=== PATIENT | female | born 1995 | race Caucasian/White ===

== ENCOUNTER 2018-11-22 17:34 | Observation (INO) | payer OTHER ==
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
[2018-11-22] MEDS ORDERED: ACETAMINOPHEN 325 MG TABLET (FP) PO ONE (20:05)
[2018-11-22] MEDS ORDERED: ACETAMINOPHEN 325 MG TABLET (FP) ONE (20:07)
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
[2018-11-22 23:27] LABS: BASO % 0.3 % (0-2.0); EOS % 0.3 % (0-4.5); HEMATOCRIT 32.8 % (32.4-45.2); HEMOGLOBIN 11.2 GM/dL (10.7-15.3); LYMPH % 15.9 % (8-40); MCH 31.7 pg (25.7-33.7); MEAN CELL VOLUME 93.4 fl (80-96); MONO % 6.6 % (3.8-10.2); NEUT % 76.9 % (42.8-82.8); PLATELET COUNT 286 K/MM3 (134-434); RBC 3.51 M/mm3 (3.60-5.2); RDW 12.2 % (11.6-15.6); WHITE BLOOD COUNT 8.5 K/mm3 (4.0-10.0)
[2018-11-22] MEDS ORDERED: ACETAMINOPHEN 325 MG TABLET (FP) PO PRN (23:46)
[2018-11-22 23:47] LABS: ALBUMIN 3.7 g/dl (3.4-5.0); ALK PHOS 57 U/L (45-117); ANION GAP 5 MMOL/L (8-16); BILIRUBIN,TOTAL 0.5 mg/dL (0.2-1); BLOOD UREA NITROGEN 11 mg/dL (7-18); CALCIUM 9.2 mg/dL (8.5-10.1); CHLORIDE 107 mmol/L (98-107); CO2 25 mmol/L (21-32); CREATININE 0.6 mg/dL (0.55-1.3); GLUCOSE,RANDOM 100 mg/dL (74-106); POTASSIUM 3.7 mmol/L (3.5-5.1); SGOT/AST 13 U/L (15-37); SGPT/ALT 16 U/L (13-61); SODIUM 137 mmol/L (136-145); TOT PROT 6.6 g/dl (6.4-8.2)
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
[2018-11-23 07:00] LABS: HEMATOCRIT 37.7 % (32.4-45.2); HEMOGLOBIN 12.9 GM/dL (10.7-15.3); MCH 31.8 pg (25.7-33.7); MCHC 34.2 g/dl (32.0-36.0); MEAN PLT VOLUME 8.1 fl (7.5-11.1); PLATELET COUNT 305 K/MM3 (134-434); RBC 4.05 M/mm3 (3.60-5.2); RDW 12.2 % (11.6-15.6); WHITE BLOOD COUNT 7.4 K/mm3 (4.0-10.0)
[2018-11-23 07:22] LABS: INR 1.13 (0.83-1.09); PROTHROMBIN TIME (PATIENT) 13.4 SEC (9.7-13.0)
[2018-11-23 07:24] LABS: ACTIVATED PTT 34.5 SECONDS (25.2-36.5)
[2018-11-23 07:26] LABS: ANION GAP 8 MMOL/L (8-16); BLOOD UREA NITROGEN 8 mg/dL (7-18); CALCIUM 8.9 mg/dL (8.5-10.1); CHLORIDE 106 mmol/L (98-107); CO2 25 mmol/L (21-32); CREATININE 0.6 mg/dL (0.55-1.3); GLUCOSE,RANDOM 77 mg/dL (74-106); MAGNESIUM 1.9 mg/dL (1.8-2.4); PHOSPHOROUS 3.9 mg/dL (2.5-4.9); POTASSIUM 3.6 mmol/L (3.5-5.1); SODIUM 139 mmol/L (136-145)
[2018-11-23] MEDS ORDERED: ACETAMINOPHEN 325 MG TABLET (FP) ONE (08:37)
[2018-11-23 12:30] VITALS: BP 106/58; PULSE 88; TEMP 99.6
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
== END 2018-11-23 14:30 | disposition home or self-care (01) ==
LOC: JER 17:34 → JERBED 11-23 00:31
PROVIDERS: ADMIT Internal Medicine; ATTEND Internal Medicine
DX: Z04.71 Encounter for examination and observation following alleged adult physical abuse (principal); O26.891 Other specified pregnancy related conditions, first trimester; O20.8 Other hemorrhage in early pregnancy; Z3A.10 10 weeks gestation of pregnancy; S40.212A Abrasion of left shoulder, initial encounter; Y04.2XXA Assault by strike against or bumped into by another person, initial encounter; Y07.03 Male partner, perpetrator of maltreatment and neglect; Y93.89 Activity, other specified; Y92.9 Unspecified place or not applicable
CPT/HCPCS: 36415; 76801-TC; 80048; 80053; 83735; 84100; 84702; 85025; 85027; 85610; 85730; 86850; 86900; 86901; 99285-25; G0378

== ENCOUNTER 2019-01-03 16:14 | Emergency (ER) | payer OTHER ==
[2019-01-03 17:02] VITALS: BP 109/61; PULSE 91; TEMP 98; BMI 17.5
[2019-01-03] MEDS ORDERED: predniSONE 20 MG TABLET (UD) PO ONE (17:19)
[2019-01-03] MEDS ORDERED: ALBUTEROL SO4 2.5/IPRATROPIUM 0.5 INH SOL 3 ML VIAL.NEB. NEB ONE (17:19)
--- NOTE | 2019-01-03 17:24 | PDOC ---
History of Present Illness - General Chief Complaint: Asthma Stated Complaint: DIFFICULTY BREATHING Time Seen by Provider: 01/03/19 17:13 History Source: Patient Exam Limitations: No Limitations - History of Present Illness Initial Comments: 01/03/19 17:23 23 y/o female who is currently 16 weeks presents to the ED with worsening shortness of breath- of note patient went to [facility] last night with trouble breathing, where she was given a nebulizer treatment and steroids and was discharged home with a nebulizer pump. She was still having worsening shortness of breath when she woke up this AM, but then began to have chest pain which is reproducible. She is also complaining of an associated cough, however, is not productive. She denies any sick contacts no recent travel no systemic symptoms- no fevers/chills however she did have an episode of vomiting this AM. She was diagnosed with asthma around 2 years ago and uses a rescue inhaler only when she needs it. 01/03/19 17:24 Timing/Duration: 24 hours Severity: moderate Associated Symptoms: reports: chest pain, cough, shortness of breath. denies: weakness Past History - Travel Traveled outside of the country in the last 30 days: No Close contact w/someone who was outside of country & ill: No - Past Medical History Allergies/Adverse Reactions: Allergies Allergy/AdvReac Type Severity Reaction Status Date / Time mushroom Allergy Severe Swelling Verified 01/03/19 16:53 Home Medications: Ambulatory Orders No122/Iron/Folic Acid [ Multi Tablet] 1 each PO DAILY 11/22/18 Asthma: Yes COPD: No - Surgical History Appendectomy: Yes - Reproductive History (#): 1 Para: 0 - Immunization History Immunization Up to Date: Yes - Suicide/Smoking/Psychosocial Hx Smoking History: Never smoked Have you smoked in the past 12 months: No Information on smoking cessation initiated: No Hx Alcohol Use: No Drug/Substance Use Hx: No Substance Use Type: Marijuana Review of Systems - Review of Systems Able to Perform ROS?: Yes Is the patient limited Malay proficient: No HEENTM: No: Blurred Vision Respiratory: Yes: Shortness of Breath, Wheezing Cardiac (ROS): Yes: Chest Pain ABD/GI: No: Nausea, Vomiting : No: Burning, Dysuria, Discharge *Physical Exam - Vital Signs Last Vital Signs Temp Pulse Resp BP Pulse Ox 98 F 91 H 23 H 109/61 100 01/03/19 16:54 01/03/19 16:54 01/03/19 16:54 01/03/19 16:54 01/03/19 16:54 - Physical Exam General Appearance: Yes: Mild Distress Respiratory/Chest: positive: Decreased Breath Sounds, Wheezing (slight wheezing anteriorly) Cardiovascular: positive: Regular Rhythm, S1, S2, Tachycardia Gastrointestinal/Abdominal: positive: Normal Bowel Sounds, Soft, Protuberent ( ) Musculoskeletal: negative: CVA Tenderness Extremity: positive: Normal Inspection Neurologic: positive: Fully Oriented, Alert Medical Decision Making - Medical Decision Making 01/03/19 17:32 cbc/cmp CXR duonebs reasssess 01/03/19 17:38
[2019-01-03] MEDS: ALBUTEROL SO4 2.5/IPRATROPIUM 0.5 INH SOL 3 ML VIAL.NEB. NEB SCH ×3 (17:53→18:17)
--- NOTE | 2019-01-03 18:06 | PDOC ---
Documentation entered by Alize Foote SCRIBE, acting as scribe for Priti Keith MD. Priti Keith MD: This documentation has been prepared by the Dary garcia Adrianna, SCRIBE, under my direction and personally reviewed by me in its entirety. I confirm that the documentation accurately reflects all work, treatment, procedures, and medical decision making performed by me. Attending Attestation - Resident Resident Name: GetimaniChristina - ED Attending Attestation I have performed the following: I have examined & evaluated the patient, The case was reviewed & discussed with the resident, I agree w/resident's findings & plan - HPI HPI: 01/03/19 18:06 23 Y F (at 16 weeks gestation), with pmh of asthma, presenting with worsening SOB. Patient went to [facility] last night for SOB, where she was given duoneb and prednisone, and discharged with a nebulizer pump and unremarkable workup. Patient admits to still feeling SOB upon waking up this morning, with associated reproducible anterior chest pain that is associated with coughing.. Chest pain is reproducible and exacerbated with inspiration. She notes only using her inhaler as needed, and denies any increased use recently. Denies any known trigger of symptoms. she also admits to wheezing x 1 week. yesterday, she had been exposed to roommate who smokes and that has irritated her breathing. no VB or discharge has dark cloudy urine x 1 month, has had testing and neg STD/urinary tract infection. Denies fever, chills, palpitation, dizziness, weakness, N, V, D, abdominal pain , bladder and bowel problems, leg swelling, No sick contacts or travel. No new changes in medications. Allergies: Mushroom Past Medical History: Asthma Social history: Lives with family. Former marijuana and EtOH use (stopped after began). No tobacco use. Surgical history: Appendectomy Meds: as documented in EMR 01/03/19 19:34 01/03/19 19:45 01/03/19 19:47 - Physicial Exam PE: 01/03/19 19:34 Agree with the resident's HPI and PE as documented in the electronic medical record. NAD, well appearing, PERRL, EOMI, MMM, nl conjunctiva, anicteric; neck supple. lungs with initial wheezing, now clear on reassessment, speaking full sentences. RRR, abdomen soft nontender. NIELSEN x4, no focal neuro deficits. No peripheral edema. normal color for ethnicity, WWP. - Medical Decision Making 01/03/19 18:05 See HPI for details Vital signs reviewed, wnl. Prior notes reviewed, including admissions, discharges and consultations. ED course - no acute events. CXR clear, no acute pna, infection, pt shielded and ok with imaging with understanding of indication/risks and benefits. also has 2nd visit, cxr to check for infection, which is neg, no effusion or edema, normal cardiac silhouette pocus echo and thoracic exam neg for acute pathology, RV<LV, normal EF on visual estimation. dry lungs, no effusion live IUP with FHR 156 bpm, +FM and no pelvic FF. Bpd by 2nd trimester c/w 16 w 3d. - chest pain is reproducible, likely costochondritis from coughing episodes - tylenol only for analgesia. PO potassium for mild hypo K. - UA ?infection, f/u culture, treat as bacteruria/uti of with symptoms , keflex x 1 week course give some urinary sx.. - s/p duonebs with improvement - likely asthma related vs RAD and allergies told to avoid triggers, including 2nd hand smoke and environmental triggers. - has OB followup this upcoming Sunday. Dispo: Pt informed of my clinical impression, treatment recommendations and disposition plan. All questions answered to patient's satisfaction and expressed understanding and comfort with this. Reasons for returning to the ED sooner discussed including new or persistent/worsening symptoms with the patient otherwise, follow up with primary care physician. At the time of discharge, the patient is alert, clinically improved, tolerating po and verbalizes understanding of instructions, satisfied with the care received and felt comfortable with the plan. Patient does not suffer from an acute life- threatening medical condition at this time she is safe for outpatient follow- up. 01/03/19 19:37 01/03/19 21:46 Heart Score/ECG Review #1 ECG reviewed & interpreted by me at: 18:45 General ECG Interpretation: Sinus Rhythm, Normal Rate, Normal Intervals Compared to previous ECG there are: Previous ECG unavail 01/03/19 19:56 EKG normal sinus rhythm at 100 bpm, no interval abnormalities, narrow QRS, ST and T wave segments and morphology normal. Nonspecific T wave abnormalities in III, AVF - no prior. 01/03/19 19:57 Procedures - Bedside Ultrasound Bedside Ultrasound: Cardiac Remarks: 01/03/19 19:32 Bedside pelvic US performed for female with FHR check. views obtained: TV and sagittal pelvis , findings include live IUP visualized dated at , FHR at 156 bpm. estimated age with BPD at 16 w 3 d.no pelvic FF in cul de sac. Impression: live IUP. POCUS echo and thoracic exam performed and documented/saved, indication includes chest pain/dyspnea. views obtained (PSLA, PSS, A4, SX, IVC, bilateral lung boyce). Findings include normal EF on visual estimation, no pericardial effusion, primarily A line profile, no FWMA, normal IVC with no collapse. RV< LV. Impression: no acute findings
[2019-01-03 18:32] LABS: BASO % 0.2 % (0-2.0); HEMATOCRIT 36.1 % (32.4-45.2); HEMOGLOBIN 11.7 GM/dL (10.7-15.3); LYMPH % 5.1 % (8-40); MCH 30.5 pg (25.7-33.7); MCHC 32.4 g/dl (32.0-36.0); MEAN CELL VOLUME 94.2 fl (80-96); MEAN PLT VOLUME 8.3 fl (7.5-11.1); MONO % 2.5 % (3.8-10.2); NEUT % 92.2 % (42.8-82.8); PLATELET COUNT 312 K/MM3 (134-434); RBC 3.83 M/mm3 (3.60-5.2); RDW 12.5 % (11.6-15.6); WHITE BLOOD COUNT 12.8 K/mm3 (4.0-10.0)
--- NOTE | 2019-01-03 19:27 | PDOC ---
*Physical Exam - Vital Signs Last Vital Signs Temp Pulse Resp BP Pulse Ox 98 F 91 H 23 H 109/61 100 01/03/19 16:54 01/03/19 16:54 01/03/19 16:54 01/03/19 16:54 01/03/19 16:54 <Griffin Stanley - Last Filed: 01/03/19 21:46> - Vital Signs Last Vital Signs Temp Pulse Resp BP Pulse Ox 98 F 91 H 23 H 109/61 100 01/03/19 16:54 01/03/19 16:54 01/03/19 16:54 01/03/19 16:54 01/03/19 16:54 <InnaPriti Chaitanya - Last Filed: 01/04/19 01:15> ED Treatment Course - LABORATORY CBC & Chemistry Diagram: 01/03/19 17:45 01/03/19 17:45 - ADDITIONAL ORDERS Additional order review: Laboratory Results 01/03/19 17:45 Urine HCG, Qual Positive 01/03/19 17:45 RBC 3.83 MCV 94.2 MCHC 32.4 RDW 12.5 MPV 8.3 Neutrophils % 92.2 H Lymphocytes % 5.1 L D Monocytes % 2.5 L Eosinophils % 0.0 D Basophils % 0.2 - Medications Given in the ED: ED Medications Discontinued Medications Generic Name Dose Route Start Last Admin Trade Name Freq PRN Reason Stop Dose Admin Albuterol/Ipratropium 1 amp 01/03/19 17:30 01/03/19 18:17 Duoneb - NEB 01/03/19 18:16 1 amp Q15M DAMARIS Administration Prednisone 40 mg 01/03/19 17:19 01/03/19 17:54 Deltasone - PO 01/03/19 17:20 Not Given ONCE ONE <Griffin Stanley - Last Filed: 01/03/19 21:46> - LABORATORY CBC & Chemistry Diagram: 01/03/19 17:45 01/03/19 17:45 - ADDITIONAL ORDERS Additional order review: Laboratory Results 01/03/19 17:45 Urine HCG, Qual Positive 01/03/19 17:45 RBC 3.83 MCV 94.2 MCHC 32.4 RDW 12.5 MPV 8.3 Neutrophils % 92.2 H Lymphocytes % 5.1 L D Monocytes % 2.5 L Eosinophils % 0.0 D Basophils % 0.2 - Medications Given in the ED: ED Medications Discontinued Medications Generic Name Dose Route Start Last Admin Trade Name Tigist PRN Reason Stop Dose Admin Albuterol/Ipratropium 1 amp 01/03/19 17:30 01/03/19 18:17 Duoneb - NEB 01/03/19 18:16 1 amp Q15M DAMARIS Administration Prednisone 40 mg 01/03/19 17:19 01/03/19 17:54 Deltasone - PO 01/03/19 17:20 Not Given ONCE ONE <Priti Keith - Last Filed: 01/04/19 01:15> Medical Decision Making - Medical Decision Making 01/03/19 19:27 Pt signed out to me by Dr. Zhou. 23F who presents with asthma exacerbation. Given duonebs with resolution of symptoms. Pending CMP. 01/03/19 21:46 CMP shows K of 3.1. Will give PO K. UA shows UTI. Will prescribe abx. Pt aware and will d/c after K. Will instruct to f/u to PCP. <Griffin Stanley - Last Filed: 01/03/19 21:46> *DC/Admit/Observation/Transfer - Discharge Dispostion Decision to Admit order: No <Griffin Stanley - Last Filed: 01/03/19 21:46> - Discharge Dispostion Decision to Admit order: No <Priti Keith - Last Filed: 01/04/19 01:15> Diagnosis at time of Disposition: Qualifiers: Weeks of gestation: 16 weeks Qualified Code(s): Z3A.16 - 16 weeks gestation of Asthma Qualifiers: Asthma severity: unspecified severity Asthma persistence: unspecified Asthma complication type: unspecified Qualified Code(s): J45.909 - Unspecified asthma, uncomplicated - Discharge Dispostion Disposition: HOME Condition at time of disposition: Improved - Prescriptions Prescriptions: Albuterol Sulfate Inhaler - [Ventolin HFA Inhaler -] 1 - 2 inh PO QID #1 inhaler Cephalexin Monohydrate [Keflex -] 500 mg PO BID #14 capsule - Referrals Referrals: [facility] [place] [Provider Group] [address] [Provider Group] - Patient Instructions Printed Discharge Instructions: Asthma -- Adult, Allergic Rhinitis Additional Instructions: 1) Please follow-up with your primary care doctor in the next 1-2 days. Please call tomorrow for for any urgent issues. you are to follow with your OB in the [place] on Sunday as scheduled, bring your information. 2) You were given a copy of the tests performed today. Please bring the results with you and review them with your primary care doctor. Your laboratory / imaging results were normal, your Xray negative your bedside ultrasound showed a live intrauterine and negative cardiac and lung ultrasound 3) If you have any worsening of symptoms or any other concerns please return to the ED immediately. Return if worsening symptoms including fevers, headache, vomiting, visual or hearing disturbances, abdominal pain, chest pain, shortness of breath, syncope, dehydration, inability to take things by mouth/vomiting, altered mental status, or worsening concerning symptoms. 4) Please continue taking your home medications as directed. your medications on discharge include tylenol for pain control . side effects may include upset stomach, abdominal pain, vomiting, or diarrhea. do not drink alcohol with your medications. salt water gargles and warm lemon tea is appropriate as well for soothing qualities for sore throat/cough. minimize spread of infection given contagious nature, and cover your mouth and wash your hands adequately with soap and water. Stay well hydrated and rest. Cool air - walk around outdoors in the evening. May also try hot shower steam. This can alleviate the congestion and cough. May use the albuterol inhaler every 4-6 hours as needed for cough and breathing to clear up your airways. Return precautions include respiratory distress, difficulty breathing, chest pain, lethargy, confusion, dehydration, high fevers or pain. avoid triggers such as smoke inhalation. Stay well hydrated and rest adequately. Make an appointment. If you cannot follow-up with your primary care doctor please return to the ED - Post Discharge Activity Forms/Work/School Notes: Back to Work
[2019-01-03 19:36] LABS: PLATELET ESTIMATE ADEQUATE
[2019-01-03] MEDS ORDERED: ACETAMINOPHEN 325 MG TABLET (FP) PO ONE (19:47)
[2019-01-03] MEDS ORDERED: ACETAMINOPHEN 325 MG TABLET (FP) ONE (20:09)
[2019-01-03 20:46] LABS: ALBUMIN 3.5 g/dl (3.4-5.0); ALK PHOS 58 U/L (45-117); ANION GAP 9 MMOL/L (8-16); BILIRUBIN,TOTAL 0.3 mg/dL (0.2-1); BLOOD UREA NITROGEN 6 mg/dL (7-18); CALCIUM 8.7 mg/dL (8.5-10.1); CHLORIDE 108 mmol/L (98-107); CO2 22 mmol/L (21-32); CREATININE 0.6 mg/dL (0.55-1.3); GLUCOSE,RANDOM 115 mg/dL (74-106); POTASSIUM 3.1 mmol/L (3.5-5.1); SGOT/AST 11 U/L (15-37); SGPT/ALT 15 U/L (13-61); SODIUM 139 mmol/L (136-145); TOT PROT 6.8 g/dl (6.4-8.2)
[2019-01-03 21:36] LABS: EPI CELLS 4.1 /HPF (0-5/HPF); PH,URINE 5.5 (5.0-8.0); URINE APPEARANCE CLEAR; URINE BACTERIA 690.8 /hpf (NEGATIVE); URINE BILIRUBIN NEGATIVE (NEGATIVE); URINE CASTS 9 /lpf (0-8); URINE COLOR YELLOW; URINE GLUCOSE (UA) TRACE (NEGATIVE); URINE KETONE 1+ (NEGATIVE); URINE LEUK ESTERASE TRACE (NEGATIVE); URINE NITRITE NEGATIVE (NEGATIVE); URINE PROTEIN NEGATIVE (NEGATIVE); URINE RBC 1 /hpf (0-4); URINE WBC 6 /hpf (0-5)
[2019-01-03] MEDS ORDERED: POTASSIUM CHLORIDE TABS 20 MEQ TABLET.ER (FP) PO ONE ×2 (21:46→22:13)
[2019-01-03] MEDS ORDERED: POTASSIUM CHLORIDE ORAL LIQUID 20 MEQ/15 ML PO ONE (22:39)
[2019-01-03] MEDS ORDERED: POTASSIUM CHLORIDE ORAL LIQUID 20 MEQ/15 ML ONE (22:39)
--- NOTE | 2019-01-04 09:39 | EKG ---
Test Reason : Blood Pressure : / mmHG Vent. Rate : 100 BPM Atrial Rate : 100 BPM P-R Int : 126 ms QRS Dur : 082 ms QT Int : 362 ms P-R-T Axes : 083 063 026 degrees QTc Int : 466 ms NORMAL SINUS RHYTHM ABNORMAL ECG NO PREVIOUS ECGS AVAILABLE Confirmed by ENRIKE LUCIO, ARTI ([id number]) on 01/04/2019 9:39:10 AM Referred By: Confirmed By:ARTI CALVERT MD
== END 2019-01-03 22:44 | disposition home or self-care (01) ==
LOC: JER 16:14
PROC: BY4CZZZ Ultrasonography of Second Trimester, Single Fetus (ICD-10-PCS; principal; 2019-01-03)
PROC: B246ZZZ Ultrasonography of Right and Left Heart (ICD-10-PCS; 2019-01-03)
PROC: 3E0F7GC Introduction of Other Therapeutic Substance into Respiratory Tract, Via Natural or Artificial Opening (ICD-10-PCS; 2019-01-03)
DX: O26.892 Other specified pregnancy related conditions, second trimester (principal); O99.512 Diseases of the respiratory system complicating pregnancy, second trimester; J45.901 Unspecified asthma with (acute) exacerbation; O23.32 Infections of other parts of urinary tract in pregnancy, second trimester; E87.6 Hypokalemia; Z3A.16 16 weeks gestation of pregnancy
CPT/HCPCS: 36415; 71045-TC-FY; 80053; 81003; 84484; 84703; 85025; 87086; 87186; 93005; 93010; 99282-25